=== PATIENT | male | born 1930 | race Caucasian/White ===

== ENCOUNTER 2020-04-04 12:13 | Emergency (ER) | payer MEDICARE, BC ==
--- NOTE | 2020-04-04 12:28 | EDM.PDOC ---
ED HPI GENERAL MEDICAL PROBLEM - General Chief Complaint: Lower Extremity Injury/Pain Stated Complaint: LEFT FOOT IN EXTREME PAIN Time Seen by Provider: 04/04/20 12:27 Source of Information: Reports: Patient, Old Records, RN, RN Notes Reviewed History Limitations: Reports: No Limitations - History of Present Illness INITIAL COMMENTS - FREE TEXT/NARRATIVE: States he was having left hip pain for a couple days, then some right knee pain for 2 to 3 days, and now presents to the ER due to left foot pain with redness for the past 2 days. Pain to left foot is worse when he steps on it, otherwise not much pain. Has swelling and redness to foot and ankle on left. States he has problems with gout to the left foot and is on Allopurinol. Took Ibuprofen yesterday for pain and felt it did help with pain. Onset: Gradual Duration: Day(s): (1-2) Location: Reports: Lower Extremity, Left Quality: Reports: Ache Severity: Severe Improves with: Reports: None Worsens with: Reports: Other (Wt bearing) Associated Symptoms: Reports: No Other Symptoms - Related Data Allergies Allergy/AdvReac Type Severity Reaction Status Date / Time No Known Allergies Allergy Verified 04/04/20 12:27 Home Meds: Home Meds Aspirin [Halfprin] 81 mg PO BRK 12/24/15 [History] Doxazosin Mesylate [Cardura] 1 mg PO BEDTIME 12/24/15 [History] Lisinopril [Prinivil] 5 mg PO DAILY 12/24/15 [History] Multivit-Min/FA/Lycopen/Lutein [Centrum Silver Tablet] 1 tab PO ACBREAKFAST [History] Triamcinolone Acetonide [Triamcinolone Acetonide 0.1% Crm] 1 applic TOP BID PRN 12/24/15 [History] atorvaSTATin [Lipitor] 40 mg PO DAILY 12/24/15 [History] glipiZIDE [Glucotrol] 2.5 mg PO BID 12/24/15 [History] allopurinoL [Zyloprim] 300 mg PO DAILY 04/04/20 [History] Past Medical History Cardiovascular History: Reports: None Musculoskeletal History: Reports: Osteoarthritis Other Musculoskeletal History: knee Neurological History: Reports: TIA Endocrine/Metabolic History: Reports: Diabetes, Type II Oncologic (Cancer) History: Reports: Prostate Other Oncologic History: history; PSA fluctuates the last 6 months - Infectious Disease History Infectious Disease History: Reports: Chicken Pox - Past Surgical History Cardiovascular Surgical History: Reports: None Endocrine Surgical History: Reports: None Oncologic Surgical History: Reports: None Dermatological Surgical History: Reports: None Social & Family History - Family History Family Medical History: Unobtainable - Living Situation & Occupation Occupation: Retired ([employer]) Review of Systems - Review of Systems Review Of Systems: Comprehensive ROS is negative, except as noted in HPI. ED EXAM, GENERAL - Physical Exam Exam: See Below Exam Limited By: No Limitations General Appearance: Alert, WD/WN, No Apparent Distress Throat/Mouth: Normal Inspection, Normal Lips, Normal Voice, No Airway Compromise Head: Atraumatic, Normocephalic Neck: Normal Inspection Respiratory/Chest: No Respiratory Distress, Lungs Clear, Normal Breath Sounds, No Accessory Muscle Use, Chest Non-Tender Cardiovascular: Normal Peripheral Pulses, Regular Rate, Rhythm GI/Abdominal: Normal Bowel Sounds, Soft, Non-Tender Back Exam: Normal Inspection Extremities: Normal Range of Motion, Redness (with tenderness, mild swelling, and increased warmth to left medial ankle and dorsal midfoot, skin is intact, joint is not painful (inconsistent with gout)). No: Joint Swelling, Barney's Sign Neurological: Alert, Oriented, No Motor/Sensory Deficits Course - Vital Signs Last Recorded V/S: Last Vital Signs Temp 98.3 F 04/04/20 12:17 Pulse 81 04/04/20 12:17 Resp 18 04/04/20 12:17 BP 120/81 04/04/20 12:17 Pulse Ox 97 04/04/20 12:17 - Orders/Labs/Meds Orders: Active Orders 24 hr Category Date Time Status CBC WITH AUTO DIFF [HEME] Stat Lab 04/04/20 12:34 Results MANUAL DIFFERENTIAL QA/NC [HEME] Stat Lab 04/04/20 12:34 Results Labs: Laboratory Tests 04/04/20 04/04/20 Range/Units 12:34 12:34 WBC 9.2 (5.0-10.0) 10^3/uL RBC 4.05 L (4.6-6.2) 10^6/uL Hgb 12.4 L (14.0-18.0) g/dL Hct 38.5 L (40.0-54.0) % MCV 95.1 (80-100) fL MCH 30.6 (27.0-34.0) pg MCHC 32.2 L (33.0-35.0) g/dL Plt Count 187 (150-450) 10^3/uL Neut % (Auto) 70.2 (42.2-75.2) % Lymph % (Auto) 15.0 L (20.5-50.1) % [place] % (Auto) 8.0 (2-8) % Eos % (Auto) 6.7 H (1.0-3.0) % Baso % (Auto) 0.1 (0.0-1.0) % Add Manual Diff Yes Sodium 140 (136-145) mmol/L Potassium 4.0 (3.5-5.1) mmol/L Chloride 105 (98-107) mmol/L Carbon Dioxide 26 (21-32) mmol/L Anion Gap 13.0 (7-13) mEq/L BUN 26 H (7-18) mg/dL Creatinine 1.38 H (0.70-1.30) mg/dL Est Cr Clr Drug Dosing 38.65 mL/min Estimated GFR (MDRD) 49 BUN/Creatinine Ratio 18.8 (No establ ref range) Glucose 181 H (74-99) mg/dL Uric Acid 3.9 (3.5-7.2) mg/dL Calcium 8.3 L (8.5-10.1) mg/dL Total Bilirubin 0.5 (0.2-1.0) mg/dL AST 15 (15-37) U/L ALT 26 (16-63) U/L Alkaline Phosphatase 48 (46-116) U/L C-Reactive Protein 6.4 H (0.0-0.9) mg/dL Total Protein 6.5 (6.4-8.2) g/dL Albumin 3.0 L (3.4-5.0) g/dL Globulin 3.5 Albumin/Globulin Ratio 0.86 Departure - Departure Time of Disposition: 13:30 Disposition: Home, Self-Care 01 Condition: Good Clinical Impression: Cellulitis of left foot - Discharge Information *PRESCRIPTION DRUG MONITORING PROGRAM REVIEWED*: No *COPY OF PRESCRIPTION DRUG MONITORING REPORT IN PATIENT KENA: No Instructions: Cellulitis, Adult Forms: ED Department Discharge Additional Instructions: Rx: Cephalexin 500mg Rx: Doxycycline 100mg Rx: Liberal (Hydrocodone) 5mg/325mg *Do not drive while taking this medication. Drink plenty of water and use a stool softener or eat prunes to prevent constipation from this medication. Follow up in clinic in 2 to 3 days for recheck of your foot. Sepsis Event Note - Focused Exam Vital Signs: Vital Signs Temp Pulse Resp BP Pulse Ox 04/04/20 12:17 98.3 F 81 18 120/81 97 Date Exam was Performed: 04/04/20 Time Exam was Performed: 13:37 - My Orders Last 24 Hours: My Active Orders 04/04/20 12:34 CBC WITH AUTO DIFF [HEME] Stat MANUAL DIFFERENTIAL QA/NC [HEME] Stat - Assessment/Plan Last 24 Hours: My Active Orders 04/04/20 12:34 CBC WITH AUTO DIFF [HEME] Stat MANUAL DIFFERENTIAL QA/NC [HEME] Stat
[2020-04-04 12:38] VITALS: BP 120/81; PULSE 81
== END 2020-04-04 13:40 | disposition home or self-care (01) ==
LOC: DL.ED 12:13
DX: L03.116 Cellulitis of left lower limb (principal); M19.90 Unspecified osteoarthritis, unspecified site; E11.9 Type 2 diabetes mellitus without complications; Z79.82 Long term (current) use of aspirin; Z79.899 Other long term (current) drug therapy; Z79.84 Long term (current) use of oral hypoglycemic drugs; Z86.73 Personal history of transient ischemic attack (TIA), and cerebral infarction without residual deficits
CPT/HCPCS: 36415; 80053; 84550; 85025; 86140; 99283

== ENCOUNTER 2020-04-10 11:16 | Emergency (ER) | payer MEDICARE, BC ==
[2020-04-10] MEDS ORDERED: Sodium Chloride 0.9% 10 ML Syringe FLUSH PRN (11:37)
--- NOTE | 2020-04-10 11:37 | EDM.PDOC ---
ED HPI GENERAL MEDICAL PROBLEM - General Chief Complaint: Gastrointestinal Problem Stated Complaint: DIARRHEA FOR 6 DAYS Time Seen by Provider: 04/10/20 11:37 Source of Information: Reports: Patient, Family, Old Records, RN, RN Notes Reviewed History Limitations: Reports: No Limitations - History of Present Illness INITIAL COMMENTS - FREE TEXT/NARRATIVE: Pt presents to ER from home by POV with c/o liquid diarrhea x6 days with progressively worsening generalized weakness, fatigue, loss of appetite, and nausea. Pt reports decreasing urine output with very little urine so far today. Was seen here on 04/04/20 for cellulitis of the left foot, treated with Cephalexin and Doxycycline. The foot is now better per pt. He had a stool specimen for culture/C-diff. in clinic and was expecting the results today. Pt denies chest pain, cough, shortness of breath, eye irritation/drainage, loss of taste or smell, red tongue, rash or skin lesions, abdominal pain, fevers, chills , recent travel, or known exposure to confirmed or suspected Covid-19 cases. Onset: Gradual Duration: Constant, Getting Worse Location: Reports: Abdomen, Generalized Severity: Severe Improves with: Reports: None Worsens with: Reports: None Associated Symptoms: Reports: No Other Symptoms - Related Data Allergies Allergy/AdvReac Type Severity Reaction Status Date / Time No Known Allergies Allergy Verified 04/04/20 12:27 Home Meds: Home Meds Aspirin [Halfprin] 81 mg PO BRK 12/24/15 [History] Doxazosin Mesylate [Cardura] 1 mg PO BEDTIME 12/24/15 [History] Lisinopril [Prinivil] 5 mg PO DAILY 12/24/15 [History] Multivit-Min/FA/Lycopen/Lutein [Centrum Silver Tablet] 1 tab PO ACBREAKFAST [History] Triamcinolone Acetonide [Triamcinolone Acetonide 0.1% Crm] 1 applic TOP BID PRN 12/24/15 [History] atorvaSTATin [Lipitor] 40 mg PO DAILY 12/24/15 [History] glipiZIDE [Glucotrol] 2.5 mg PO BID 12/24/15 [History] allopurinoL [Zyloprim] 300 mg PO DAILY 04/04/20 [History] Past Medical History Cardiovascular History: Reports: None Musculoskeletal History: Reports: Osteoarthritis Other Musculoskeletal History: knee Neurological History: Reports: TIA Endocrine/Metabolic History: Reports: Diabetes, Type II Oncologic (Cancer) History: Reports: Prostate Other Oncologic History: history; PSA fluctuates the last 6 months - Infectious Disease History Infectious Disease History: Reports: Chicken Pox - Past Surgical History Cardiovascular Surgical History: Reports: None Endocrine Surgical History: Reports: None Oncologic Surgical History: Reports: None Dermatological Surgical History: Reports: None Social & Family History - Family History Family Medical History: Unobtainable - Living Situation & Occupation Occupation: Retired ([employer]) ED ROS GENERAL - Review of Systems Review Of Systems: Comprehensive ROS is negative, except as noted in HPI. ED EXAM, GENERAL - Physical Exam Exam: See Below Exam Limited By: No Limitations General Appearance: Alert, WD/WN, No Apparent Distress Eye Exam: Bilateral Eye: Normal Inspection (No scleral icterus) Nose: Normal Inspection, Normal Mucosa, No Blood Throat/Mouth: Normal Lips, Normal Oropharynx, Normal Voice, No Airway Compromise , Other (Dry oral membranes) Head: Atraumatic, Normocephalic Neck: Normal Inspection, Full Range of Motion Respiratory/Chest: No Respiratory Distress, Lungs Clear, Normal Breath Sounds, No Accessory Muscle Use, Chest Non-Tender Cardiovascular: Regular Rate, Rhythm, No Edema GI/Abdominal: Normal Bowel Sounds, Soft, Non-Tender, No Organomegaly, No Distention, No Abnormal Bruit, No Mass (Male) Exam: Deferred Rectal (Males) Exam: Deferred Back Exam: Normal Inspection Extremities: Normal Inspection, Normal Range of Motion, Non-Tender, Normal Capillary Refill, No Pedal Edema Neurological: Alert, Oriented, CN II-XII Intact, Normal Cognition, No Motor/ Sensory Deficits, Other (Generalized weakness) Psychiatric: Normal Affect, Normal Mood Skin Exam: Warm, Dry, Intact, Normal Color, No Rash Course - Vital Signs Last Recorded V/S: Last Vital Signs Temp 97.2 F 04/10/20 11:30 Pulse 86 04/10/20 11:30 Resp 20 04/10/20 11:30 BP 74/45 L 04/10/20 11:30 Pulse Ox 91 L 04/10/20 11:30 Recheck BP 120/69 - Orders/Labs/Meds Orders: Active Orders 24 hr Category Date Time Status Bladder Scan [RC] ASDIRECTED Care 04/10/20 13:08 Ordered Peripheral IV Care [RC] . DIRECTED Care 04/10/20 11:38 Active CULTURE BLOOD [BC] Stat Lab 04/10/20 11:50 Received UA RFX SANDRO AND CULT IF INDIC [URIN] Stat Lab 04/10/20 11:38 Ordered Sodium Bicarbonate 100 MEQ in D5W 1000 ML @100 mL/Hr ( Med 04/10/20 13:09 Ordered 1000ml) Sodium Bicarbonate [Sodium Bicarbonate 8.4%] 100 meq Dextrose 5% in Water 1,000 ml IV ONETIME Sodium Chloride 0.9% [Saline Flush] Med 04/10/20 11:37 Active 10 ml FLUSH ASDIRECTED PRN Blood Culture x2 Reflex Set [OM.PC] Stat Oth 04/10/20 11:37 Ordered Peripheral IV Insertion Adult [OM.PC] Stat Oth 04/10/20 11:37 Ordered Medication Orders Sodium Bicarbonate 100 meq/ (Dextrose/Water) 1,100 mls @ 100 mls/hr IV ONETIME ONE Stop: 04/11/20 00:08 Last Admin: 04/10/20 13:45 Dose: 100 mls/hr Sodium Chloride (Saline Flush) 10 ml FLUSH ASDIRECTED PRN PRN Reason: Keep Vein Open Last Admin: 04/10/20 12:09 Dose: 10 ml Bladder scanner is broken. Labs: Laboratory Tests 04/10/20 04/10/20 04/10/20 Range/Units 11:42 11:42 11:42 WBC 7.3 (5.0-10.0) 10^3/uL RBC 3.95 L (4.6-6.2) 10^6/uL Hgb 12.1 L (14.0-18.0) g/dL Hct 37.1 L (40.0-54.0) % MCV 93.9 (80-100) fL MCH 30.6 (27.0-34.0) pg MCHC 32.6 L (33.0-35.0) g/dL Plt Count 221 (150-450) 10^3/uL Neut % (Auto) 65.8 (42.2-75.2) % Lymph % (Auto) 17.6 L (20.5-50.1) % Sac % (Auto) 14.9 H (2-8) % Eos % (Auto) 1.6 (1.0-3.0) % Baso % (Auto) 0.1 (0.0-1.0) % Add Manual Diff Yes Neutrophils % (Manual) 58 (42-75) % Band Neutrophils % 8 % Lymphocytes % (Manual) 18 L (20-50) % Monocytes % (Manual) 16 H (2-8) % Sodium 141 (136-145) mmol/L Potassium 4.4 (3.5-5.1) mmol/L Chloride 108 H (98-107) mmol/L Carbon Dioxide 13 L D (21-32) mmol/L Anion Gap 24.4 H (7-13) mEq/L BUN 78 H D (7-18) mg/dL Creatinine 7.43 H* D (0.70-1.30) mg/dL Est Cr Clr Drug Dosing 6.74 mL/min Estimated GFR (MDRD) 7 BUN/Creatinine Ratio 10.5 (No establ ref range) Glucose 56 L (74-99) mg/dL Lactic Acid 0.9 (0.4-2.0) mmol/L Calcium 8.0 L (8.5-10.1) mg/dL Total Bilirubin 0.3 (0.2-1.0) mg/dL AST 41 H (15-37) U/L ALT 73 H (16-63) U/L Alkaline Phosphatase 42 L (46-116) U/L B-Natriuretic Peptide 34 (0-100) pg/ml Total Protein 6.3 L (6.4-8.2) g/dL Albumin 2.7 L (3.4-5.0) g/dL Globulin 3.6 Albumin/Globulin Ratio 0.75 Amylase 69 (25-115) U/L Lipase 95 (73-393) U/L Meds: Medications Generic Name Dose Route Start Last Admin Trade Name Freq PRN Reason Stop Dose Admin Sodium Bicarbonate 100 meq/ 1,100 mls @ 100 mls/hr 04/10/20 13:09 04/10/20 13 :45 Dextrose/Water IV 04/11/20 00:08 100 mls/hr ONETIME ONE Administration Sodium Chloride 10 ml 04/10/20 11:37 04/10/20 12:09 Saline Flush FLUSH 10 ml ASDIRECTED PRN Administration Keep Vein Open Discontinued Medications Generic Name Dose Route Start Last Admin Trade Name Freq PRN Reason Stop Dose Admin Sodium Chloride 1,000 mls @ 999 mls/hr 04/10/20 11:51 04/10/20 12:09 Normal Saline IV 04/10/20 12:51 999 mls/hr .BOLUS ONE Administration Departure - Departure Time of Disposition: 13:15 Disposition: DC/Tfer to [facility] 02 Condition: Serious Clinical Impression: JARROD (acute kidney injury), Dehydration, Acute diarrhea - Discharge Information *PRESCRIPTION DRUG MONITORING PROGRAM REVIEWED*: Not Applicable *COPY OF PRESCRIPTION DRUG MONITORING REPORT IN PATIENT KENA: Not Applicable Forms: ED Department Discharge, Interfacility Transfer EMTALA Sepsis Event Note - Focused Exam Vital Signs: Vital Signs Temp Pulse Resp BP Pulse Ox 04/10/20 11:30 97.2 F 86 20 74/45 L 91 L Date Exam was Performed: 04/10/20 Time Exam was Performed: 14:02 - My Orders Last 24 Hours: My Active Orders 04/10/20 11:37 Sodium Chloride 0.9% [Saline Flush] 10 ml FLUSH ASDIRECTED PRN Blood Culture x2 Reflex Set [OM.PC] Stat Peripheral IV Insertion Adult [OM.PC] Stat 04/10/20 11:38 Peripheral IV Care [RC] . DIRECTED UA RFX SANDRO AND CULT IF INDIC [URIN] Stat 04/10/20 11:50 CULTURE BLOOD [BC] Stat 04/10/20 13:08 Bladder Scan [RC] ASDIRECTED 04/10/20 13:09 Sodium Bicarbonate 100 MEQ in D5W 1000 ML @100 mL/Hr (1000ml) Sodium Bicarbonate [Sodium Bicarbonate 8.4%] 100 meq Dextrose 5% in Water 1,000 ml IV ONETIME - Assessment/Plan Last 24 Hours: My Active Orders 04/10/20 11:37 Sodium Chloride 0.9% [Saline Flush] 10 ml FLUSH ASDIRECTED PRN Blood Culture x2 Reflex Set [OM.PC] Stat Peripheral IV Insertion Adult [OM.PC] Stat 04/10/20 11:38 Peripheral IV Care [RC] . DIRECTED UA RFX SANDRO AND CULT IF INDIC [URIN] Stat 04/10/20 11:50 CULTURE BLOOD [BC] Stat 04/10/20 13:08 Bladder Scan [RC] ASDIRECTED 04/10/20 13:09 Sodium Bicarbonate 100 MEQ in D5W 1000 ML @100 mL/Hr (1000ml) Sodium Bicarbonate [Sodium Bicarbonate 8.4%] 100 meq Dextrose 5% in Water 1,000 ml IV ONETIME
[2020-04-10 11:49] VITALS: BP 74/45; PULSE 86
[2020-04-10] MEDS ORDERED: Sodium Chloride 0.9% 1,000 ML IV ONE (11:51)
[2020-04-10 12:11] LABS: ANION GAP 24.4 mEq/L (7-13)
[2020-04-10] MEDS ORDERED: Sodium Bicarbonate 100 MEQ in Dextrose 5% in Water 1,000 ML IV ONE ×2 (13:09)
== END 2020-04-10 13:46 ==
LOC: DL.ED 11:16
DX: N17.9 Acute kidney failure, unspecified (principal); E86.0 Dehydration; R19.7 Diarrhea, unspecified; M19.90 Unspecified osteoarthritis, unspecified site; E11.9 Type 2 diabetes mellitus without complications; Z79.84 Long term (current) use of oral hypoglycemic drugs; Z79.899 Other long term (current) drug therapy; Z86.73 Personal history of transient ischemic attack (TIA), and cerebral infarction without residual deficits; Z79.82 Long term (current) use of aspirin
CPT/HCPCS: 36415; 51798; 80053; 82150; 83605; 83690; 83880; 85025; 87040; 96361; 96374; 99285; J7030; J7060; 99284

== ENCOUNTER 2020-04-16 10:18 | Inpatient (IN) | payer MEDICARE, BC ==
[2020-04-16] MEDS ORDERED: Ondansetron 4 MG Tab.DIS PO PRN (15:24)
[2020-04-16] MEDS ORDERED: Glucagon,Human Recombinant 1 MG Vial IM PRN (15:24)
[2020-04-16] MEDS ORDERED: 50% Dextrose in Water 50 ML Syringe IVPUSH PRN (15:24)
[2020-04-16] MEDS ORDERED: Ondansetron 4 MG/2 ML SDV IVPUSH PRN (15:24)
--- NOTE | 2020-04-16 16:02 | PCM.HP ---
H&P History of Present Illness - General Date of Service: 04/16/20 Admit Problem/Dx: Admission Diagnosis/Problem Admission Diagnosis/Problem Weakness Source of Information: Patient, Old Records - History of Present Illness Initial Comments - Free Text/Narative: Mr. Brandon Kaba is a/an 89 y.o. male with medical history significant for type 2 diabetes, CKD with baseline Cr of 1.3 to 1.5, hypertension, hyperlipidemia, TIA, obesity, prostate cancer, HFrEF 45-50%, and COPD who was admitted to [facility] for JARROD with Cr of 8.0. Patient had acidosis and required sodium bicarb infusion. Nephrology was consulted. Cr remained elevated. Temporary dialysis catheter was placed and patient received 2 sessions of dialysis. Urine output started improving. He was encephalopathic during hospitalization. He improved as kidney function improved. He was noted to be weak. PT and OT worked with patient and recommended Swing Bed placement. He became hypoxic and required supplemental O2. Patient is transferred to us for further therapies. Today, he reports right foot pain, no swelling or redness. Worse with ambulation. He reports that his last bowel movement was 3 days ago. States he had started using walker at home prior to admission. Denies home O2 use. Denies chest pain, shortness of breath, cough, fevers, chills, n/v/d, dysuria, hematuria, or any acute concerns. Right Foot Pain Score (Numeric/FACES): 0 - Related Data Allergies/Adverse Reactions: Allergies Allergy/AdvReac Type Severity Reaction Status Date / Time No Known Allergies Allergy Verified 04/16/20 14:20 Home Medications: Home Meds Aspirin [Halfprin] 81 mg PO DAILY 12/24/15 [History] Doxazosin Mesylate [Cardura] 1 mg PO BEDTIME 12/24/15 [History] Multivit-Min/FA/Lycopen/Lutein [Centrum Silver Tablet] 1 tab PO ACBREAKFAST [History] atorvaSTATin [Lipitor] 40 mg PO DAILY 12/24/15 [History] glipiZIDE [Glucotrol] 2.5 mg PO BID 12/24/15 [History] Bumetanide 1 mg PO DAILY 04/16/20 [History] Midodrine 10 mg PO TIDMEALS 04/16/20 [History] Past Medical History HEENT History: Reports: Impaired Vision Cardiovascular History: Reports: None, Hypertension Respiratory History: Reports: None, SOB Gastrointestinal History: Reports: None Genitourinary History: Reports: None, Dialysis, Urinary Incontinence Musculoskeletal History: Reports: Osteoarthritis Other Musculoskeletal History: knee Neurological History: Reports: TIA Psychiatric History: Reports: None Endocrine/Metabolic History: Reports: Diabetes, Type II Hematologic History: Reports: None Immunologic History: Reports: None Oncologic (Cancer) History: Reports: Prostate Other Oncologic History: history; PSA fluctuates the last 6 months Dermatologic History: Reports: Cellulitis Other Dermatologic History: LEFT FOOT CELLULITIS 3 WEEKS AGO - Infectious Disease History Infectious Disease History: Reports: Chicken Pox - Past Surgical History Head Surgeries/Procedures: Reports: None Cardiovascular Surgical History: Reports: None Male Surgical History: Reports: Prostatectomy, Other (See Below) Other Male Surgeries/Procedures: partial prostatectomy Endocrine Surgical History: Reports: None Oncologic Surgical History: Reports: None Dermatological Surgical History: Reports: None Social & Family History - Family History Family Medical History: Unobtainable - Tobacco Use Smoking Status *Q: Former Smoker Years of Tobacco use: 20 Packs/Tins Daily: 2 Used Tobacco, but Quit: Yes Month/Year Tobacco Last Used: 1994 - Caffeine Use Caffeine Use: Reports: Coffee, Soda Other Caffeine Use: 1-2 cups a day Caffeine Use Comment: diet coke - Alcohol Use Days Per Week of Alcohol Use: 6 Number of Drinks Per Day: 1 Total Drinks Per Week: 6 - Recreational Drug Use Recreational Drug Use: No - Living Situation & Occupation Occupation: Retired (fraser) H&P Review of Systems - Review of Systems: Review Of Systems: Comprehensive ROS is negative, except as noted in HPI. Exam - Exam Exam: See Below - Vital Signs Vital Signs: Last Vital Signs Temp 97.8 F 04/16/20 14:30 Pulse 67 04/16/20 14:30 Resp 18 04/16/20 14:30 BP 112/50 L 04/16/20 14:30 Pulse Ox 95 04/16/20 15:25 Weight: 203 lb 3.2 oz - Exam Quality Assessment: Supplemental Oxygen (2L via nasal canula) General: Alert, Oriented, Cooperative HEENT: Conjunctiva Clear, Hearing Intact, Mucosa Moist & [place] Neck: Supple, Trachea Midline Lungs: Crackles (Faint bibasilar crackles. ) Cardiovascular: Regular Rate, Regular Rhythm, Normal S1, Normal S2, Systolic Murmur GI/Abdominal Exam: Normal Bowel Sounds, Soft, Non-Tender, No Distention Extremities: Normal Inspection, Other (Right dorsal foot pain. ) Skin: Warm, Dry, Intact Neuro Extensive - Mental Status: Alert, Oriented x3, Normal Mood/Affect, Normal Cognition, Memory Intact Psychiatric: Alert, Normal Affect, Normal Mood - Problem List (1) Type II diabetes mellitus SNOMED Code(s): 64591277 ICD Code: E11.9 - TYPE 2 DIABETES MELLITUS WITHOUT COMPLICATIONS Status: Acute Current Visit: Yes (2) Hyperlipidemia SNOMED Code(s): 74557272 ICD Code: E78.5 - HYPERLIPIDEMIA, UNSPECIFIED Status: Acute Current Visit : Yes (3) Hypertension SNOMED Code(s): 78433412 ICD Code: I10 - ESSENTIAL (PRIMARY) HYPERTENSION Status: Acute Current Visit: Yes (4) Right foot pain SNOMED Code(s): 56961020 ICD Code: M79.671 - PAIN IN RIGHT FOOT Status: Acute Current Visit: Yes (5) Hypoxia SNOMED Code(s): 478656467 ICD Code: R09.02 - HYPOXEMIA Status: Acute Current Visit: Yes (6) Hypotension SNOMED Code(s): 40707542 ICD Code: I95.9 - HYPOTENSION, UNSPECIFIED Status: Acute Current Visit: Yes (7) JARROD (acute kidney injury) SNOMED Code(s): 07559616, 94793856 ICD Code: N17.9 - ACUTE KIDNEY FAILURE, UNSPECIFIED Status: Acute Current Visit: No Problem List Initiated/Reviewed/Updated: Yes Orders Last 24hrs: Active Orders 24 hr Category Date Time Status Patient Status [ADT] Routine ADT 04/16/20 15:25 Active Blood Glucose Check, Bedside [RC] QIDACANDBED Care 04/16/20 15:24 Active Diabetes Education [RC] Click to Edit Care 04/16/20 15:25 Active Intake and Output [RC] QSHIFT Care 04/16/20 15:28 Active Notify Provider [RC] PRN Care 04/16/20 15:25 Active Oxygen Therapy [RC] .PRN Care 04/16/20 15:25 Active Up With Assistance [RC] ASDIRECTED Care 04/16/20 15:24 Active VTE/DVT Education [RC] PER UNIT ROUTINE Care 04/16/20 15:25 Active Vital Signs [RC] ,20 Care 04/16/20 15:25 Active OT Evaluation and Treatment [CONS] Routine Cons 04/16/20 15:41 Active PT Evaluation and Treatment [CONS] Routine Cons 04/16/20 15:41 Active Consistent Carbohydrate Diet [DIET] Diet 04/16/20 Dinner Active BASIC METABOLIC PANEL,BMP [CHEM] Timed Lab 04/18/20 06:00 Ordered Acetaminophen [Tylenol] Med 04/16/20 15:24 Active 650 mg PO Q6H PRN Aspirin [Halfprin] Med 04/17/20 09:00 Ordered 81 mg PO DAILY Bumetanide [Bumex] Med 04/17/20 09:00 Ordered 1 mg PO DAILY Dextrose 50% in Water Med 04/16/20 15:24 Active 25 ml IVPUSH ASDIRECTED PRN Docusate Sodium/Sennosides [Senna Plus] Med 04/16/20 15:24 Active 1 tab PO BEDTIME PRN Doxazosin Mesylate [Cardura] Med 04/16/20 21:00 Ordered 1 mg PO BEDTIME Glucagon,Human Recombinant [GlucaGen] Med 04/16/20 15:24 Active 1 mg IM ONETIME PRN Heparin Sodium Med 04/16/20 22:00 Ordered 5,000 units SUBCUT Q8HR Insulin Lispro [HumaLOG] Med 04/16/20 18:00 Active See Protocol SUBCUT WITHMEALSANDBED Midodrine [Midodrine] Med 04/16/20 17:00 Ordered 10 mg PO TIDMEALS Multivit-Min/FA/Lycopen/Lutein [Centrum Silver Tablet] Med 04/17/20 06:00 Ordered 1 tab PO ACBREAKFAST Ondansetron [Zofran ODT] Med 04/16/20 15:24 Active 4 mg PO Q6H PRN Ondansetron [Zofran] Med 04/16/20 15:24 Active 4 mg IVPUSH Q6H PRN atorvaSTATin [Lipitor] Med 04/17/20 09:00 Ordered 40 mg PO DAILY Resuscitation Status Routine Resus Stat 04/16/20 15:24 Ordered Medication Orders Acetaminophen (Tylenol) 650 mg PO Q6H PRN PRN Reason: Pain (Mild 1-3)/fever Aspirin (Halfprin) 81 mg PO DAILY [facility] Bumetanide (Bumex) 1 mg PO DAILY [facility] Dextrose/Water (Dextrose 50% In Water) 25 ml IVPUSH ASDIRECTED PRN PRN Reason: Hypoglycemia Glucagon (Glucagen) 1 mg IM ONETIME PRN PRN Reason: Hypoglycemia Heparin Sodium (Porcine) (Heparin Sodium) 5,000 units SUBCUT Q8HR [facility] Insulin Human Lispro (Humalog) 0 unit SUBCUT WITHMEALSANDBED [facility]; Protocol Non-Formulary Medication (Atorvastatin [Lipitor]) 40 mg PO DAILY [facility] Non-Formulary Medication (Doxazosin Mesylate [Cardura]) 1 mg PO BEDTIME [facility] Non-Formulary Medication (Midodrine [Midodrine]) 10 mg PO TIDMEALS [facility] Non-Formulary Medication (Multivit-Min/Fa/Lycopen/Lutein [Centrum Silver Tablet] ) 1 tab PO ACBREAKFAST [facility] Ondansetron HCl (Zofran Odt) 4 mg PO Q6H PRN PRN Reason: nausea, able to take PO Ondansetron HCl (Zofran) 4 mg IVPUSH Q6H PRN PRN Reason: Nausea/Vomiting Senna/Docusate Sodium (Senna Plus) 1 tab PO BEDTIME PRN PRN Reason: Constipation Assessment/Plan Comment:: Acute kidney injury superimposed on CKD stage III: Patient with baseline creatinine of 1.3-1.5. Was admitted to [facility] with creatinine of 8.0. Underwent 2 sessions of dialysis. Urine output improved. Creatinine improved to 2.0. 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 CODE STATUS: DNR/DNI per patient preference
[2020-04-16] MEDS: Midodrine 2.5 MG Tab PO SCH (16:41)
[2020-04-16] MEDS: Insulin Lispro 100 Units/ML 3 ML Vial SUBCUT SCH ×2 (17:02→21:22)
--- NOTE | 2020-04-16 19:55 | CR ---
PROCEDURE INFORMATION: Exam: XR Right Foot Exam date and time: 04/16/2020 7:30 PM Age: 89 years old Clinical indication: Other: No injury; Additional info: Foot pain TECHNIQUE: Imaging protocol: XR Right foot. Views: 1 or 2 views. COMPARISON: No relevant prior studies available. FINDINGS: Bones/joints: The bones appear intact. There is no evidence of acute or healing fracture. There is no bone destruction or periosteal reaction. On the lateral projection, which was not performed with weight bearing, the cuboid bone appears anteriorly rotated and inferiorly subluxed. The joints are otherwise normally aligned and articulated. There are no periarticular erosions. There is a tiny plantar calcaneal spur. Soft tissues: The soft tissues are within normal limits. IMPRESSION: 1. No evidence of fracture or aggressive bone lesion. 2. Mild anterior rotation and inferior subluxation of the cuboid bone which may indicate cuboid syndrome.
[2020-04-16] MEDS: Doxazosin 2 MG Tab PO SCH (21:24)
[2020-04-16] MEDS: Heparin Sodium 5,000 Units/ML Vial SUBCUT SCH (21:29)
[2020-04-17] MEDS: Heparin Sodium 5,000 Units/ML Vial SUBCUT SCH ×3 (05:58→21:52)
[2020-04-17] MEDS: Insulin Lispro 100 Units/ML 3 ML Vial SUBCUT SCH ×4 (08:12→21:51)
[2020-04-17] MEDS: atorvaSTATin 20 MG Tab PO SCH (08:35)
[2020-04-17] MEDS: Multivitamins, Therapeutic with Minerals Tab PO SCH (08:35)
[2020-04-17] MEDS: Acetaminophen 325 MG Tab PO PRN (08:35)
[2020-04-17] MEDS: Aspirin 81 MG Tab.EC PO SCH (08:35)
[2020-04-17] MEDS: Midodrine 2.5 MG Tab PO SCH ×3 (08:36→17:30)
[2020-04-17] MEDS: Bumetanide 1 MG Tab PO SCH (08:37)
[2020-04-17] MEDS: Doxazosin 2 MG Tab PO SCH (21:43)
[2020-04-18] MEDS: Heparin Sodium 5,000 Units/ML Vial SUBCUT SCH ×3 (05:52→23:29)
[2020-04-18 06:58] LABS: ANION GAP 12.7 mEq/L (7-13)
[2020-04-18] MEDS: Insulin Lispro 100 Units/ML 3 ML Vial SUBCUT SCH ×4 (08:41→23:03)
[2020-04-18] MEDS: Midodrine 2.5 MG Tab PO SCH ×3 (08:45→17:50)
[2020-04-18] MEDS: atorvaSTATin 20 MG Tab PO SCH (08:46)
[2020-04-18] MEDS: Multivitamins, Therapeutic with Minerals Tab PO SCH (08:46)
[2020-04-18] MEDS: Aspirin 81 MG Tab.EC PO SCH (08:46)
[2020-04-18] MEDS: Bumetanide 1 MG Tab PO SCH (08:47)
[2020-04-18] MEDS: Acetaminophen 325 MG Tab PO PRN ×2 (08:47→23:26)
[2020-04-18] MEDS ORDERED: Lactulose Soln 10 GM/15 ML 30 ML UD Cup PO ONE (11:42)
[2020-04-18] MEDS: Doxazosin 2 MG Tab PO SCH (23:23)
[2020-04-19] MEDS: Heparin Sodium 5,000 Units/ML Vial SUBCUT SCH ×3 (05:34→21:34)
[2020-04-19] MEDS: Midodrine 2.5 MG Tab PO SCH ×3 (09:01→17:38)
[2020-04-19] MEDS: Insulin Lispro 100 Units/ML 3 ML Vial SUBCUT SCH ×4 (09:01→21:41)
[2020-04-19] MEDS: Bumetanide 1 MG Tab PO SCH (09:02)
[2020-04-19] MEDS: atorvaSTATin 20 MG Tab PO SCH (09:02)
[2020-04-19] MEDS: Aspirin 81 MG Tab.EC PO SCH (09:02)
[2020-04-19] MEDS: Multivitamins, Therapeutic with Minerals Tab PO SCH (09:02)
[2020-04-19] MEDS: Doxazosin 2 MG Tab PO SCH (21:32)
[2020-04-20] MEDS: Heparin Sodium 5,000 Units/ML Vial SUBCUT SCH ×3 (06:17→21:17)
[2020-04-20] MEDS: Midodrine 2.5 MG Tab PO SCH ×3 (08:28→17:23)
[2020-04-20] MEDS: Aspirin 81 MG Tab.EC PO SCH (08:29)
[2020-04-20] MEDS: Multivitamins, Therapeutic with Minerals Tab PO SCH (08:29)
[2020-04-20] MEDS: Bumetanide 1 MG Tab PO SCH (08:29)
[2020-04-20] MEDS: atorvaSTATin 20 MG Tab PO SCH (08:29)
[2020-04-20] MEDS: Insulin Lispro 100 Units/ML 3 ML Vial SUBCUT SCH ×4 (08:30→21:04)
--- NOTE | 2020-04-20 17:05 | PCM.CONSN ---
- General Info Date of Service: 04/20/20 Admission Dx/Problem (Free Text): Admission Diagnosis/Problem Admission Diagnosis/Problem Weakness Subjective Update: 89 y/o male who is admitted to swing bed for weakness, reports right foot pain. This has been going on for a few days now. He thinks it possibly could be gout as he has a history of gout and was recently taken off allopurinol. It is painful when he tries to put any pressure on the foot. He did get an xray last week, I tried taping the area and post op shoe but it is still bothering him. Denies any injury to the foot. Has really not been using the foot much since being in swing bed, only up to the bathroom which is painful any time he is walking. - Review of Systems General: Reports: No Symptoms - Patient Data Vitals - Most Recent: Last Vital Signs Temp 37.0 C 04/20/20 08:00 Pulse 65 04/20/20 08:00 Resp 18 04/20/20 08:00 BP 118/43 L 04/20/20 08:00 Pulse Ox 91 L 04/20/20 08:00 Weight - Most Recent: 91.036 kg I&O - Last 24 Hours: Intake & Output 04/20/20 04/20/20 04/20/20 06:59 14:59 22:59 Intake Total 400 Output Total 400 Balance 0 Lab Results Last 24 Hours: Laboratory Results - last 24 hr 04/19/20 04/19/20 04/20/20 Range/Units 16:45 20:50 07:24 POC Glucose 157 H 146 H 132 H (83-110) mg/dl 04/20/20 04/20/20 Range/Units 11:17 16:05 POC Glucose 178 H 156 H (83-110) mg/dl Med Orders - Current: Current Medications Acetaminophen (Tylenol) 650 mg PO Q6H PRN PRN Reason: Pain (Mild 1-3)/fever Last Admin: 04/18/20 23:26 Dose: 650 mg Aspirin (Halfprin) 81 mg PO DAILY ON LICENSE OF [facility] Last Admin: 04/20/20 08:29 Dose: 81 mg Atorvastatin Calcium (Lipitor) 40 mg PO DAILY ON LICENSE OF [facility] Last Admin: 04/20/20 08:29 Dose: 40 mg Bumetanide (Bumex) 1 mg PO DAILY ON [facility] OF [facility] Last Admin: 04/20/20 08:29 Dose: 1 mg Dextrose/Water (Dextrose 50% In Water) 25 ml IVPUSH ASDIRECTED PRN PRN Reason: Hypoglycemia Doxazosin Mesylate (Cardura) 0.5 mg PO BEDTIME ON LICENSE OF [facility] Last Admin: 04/19/20 21:32 Dose: 0.5 mg Glucagon (Glucagen) 1 mg IM ONETIME PRN PRN Reason: Hypoglycemia Heparin Sodium (Porcine) (Heparin Sodium) 5,000 units SUBCUT Q8HR ON LICENSE OF [facility] Last Admin: 04/20/20 13:01 Dose: 5,000 units Insulin Human Lispro (Humalog) 0 unit SUBCUT WITHMEALSANDBED ON LICENSE OF [facility]; Protocol Last Admin: 04/20/20 12:14 Dose: 1 unit Midodrine (Midodrine) 10 mg PO TIDMEALS ON LICENSE OF [facility] Last Admin: 04/20/20 12:19 Dose: 10 mg Multivitamins/Minerals (Vitamins And Minerals) 1 tab PO DAILY@0800 ON LICENSE OF [facility] Last Admin: 04/20/20 08:29 Dose: 1 tab Ondansetron HCl (Zofran Odt) 4 mg PO Q6H PRN PRN Reason: nausea, able to take PO Ondansetron HCl (Zofran) 4 mg IVPUSH Q6H PRN PRN Reason: Nausea/Vomiting Senna/Docusate Sodium (Senna Plus) 1 tab PO BEDTIME PRN PRN Reason: Constipation Last Admin: 04/17/20 08:35 Dose: 1 tab Discontinued Medications Lactulose (Cephulac) 20 gm PO ONETIME ONE Stop: 04/18/20 11:43 Last Admin: 04/18/20 12:46 Dose: 20 gm - Exam General: Alert, Oriented Physical Findings Comments:: Right foot with pain with palpation to lateral midfoot area along cuboid metatarsal joint which does have some edema present. No pain along peroneal tendon, none with torque of the metatarsals. Pain with stress adduction of the cuboid joint. None to the STJ or ankle joint. GOod palpable DP/PT pulses present , neuro intact to light touch. No erythema or SOI present. Sepsis Event Note - Evaluation Sepsis Screening Result: No Definite Risk - Focused Exam Vital Signs: Vital Signs Temp Pulse Resp BP Pulse Ox 04/20/20 08:00 37.0 C 65 18 118/43 L 91 L Date Exam was Performed: 04/20/20 Time Exam was Performed: 16:58 Consult PN Assessment/Plan Procedures: Procedures ASSAY OF AMYLASE (04/10/20) ASSAY OF BLOOD/URIC ACID (04/04/20) ASSAY OF LACTIC ACID (04/10/20) ASSAY OF LIPASE (04/10/20) ASSAY OF NATRIURETIC PEPTIDE (04/10/20) BLOOD CULTURE FOR BACTERIA (04/10/20) C-REACTIVE PROTEIN (04/04/20) CHEST WALL MANIPULATION (12/24/15) COMPLETE CBC W/AUTO DIFF WBC (04/10/20) COMPREHEN METABOLIC PANEL (04/10/20) CULTURE AEROBIC IDENTIFY (12/24/15) CULTURE OTHR SPECIMN AEROBIC (12/24/15) ELECTROCARDIOGRAM TRACING (12/24/15) EMERGENCY DEPT VISIT (04/10/20) EMERGENCY DEPT VISIT (04/10/20) EMERGENCY DEPT VISIT (04/04/20) GLUCOSE BLOOD TEST (12/24/15) HYDRATE IV INFUSION ADD-ON (04/10/20) METABOLIC PANEL TOTAL CA (12/24/15) OT EVALUATION (12/24/15) PT EVALUATION (12/24/15) ROUTINE VENIPUNCTURE (04/10/20) SMEAR GRAM STAIN (12/24/15) THER/PROPH/DIAG INJ IV PUSH (04/10/20) URINALYSIS AUTO W/SCOPE (12/24/15) US URINE CAPACITY MEASURE (04/10/20) Problem List Initiated/Reviewed/Updated: Yes Plan: Right foot possible gout vs cuboid syndrome, leaning more toward gout although xray was read as cuboid syndrome. Either way, an injection is an option for both conditions and I discussed that with him. I did try taping and cuboid padding with post op shoe which would usually help with the cubiod syndrome and he is still having pain. He would like injection today. I did prep the area, injected combo of 1% lidocaine plain and dexamethasone into the right cuboid met joint. He tolerated well. bandage was applied. I will check back with him in a couple days to see how the injection worked.
[2020-04-20] MEDS: Doxazosin 2 MG Tab PO SCH (21:05)
[2020-04-21] MEDS: Heparin Sodium 5,000 Units/ML Vial SUBCUT SCH ×3 (05:07→22:11)
[2020-04-21] MEDS: atorvaSTATin 20 MG Tab PO SCH (08:09)
[2020-04-21] MEDS: Multivitamins, Therapeutic with Minerals Tab PO SCH (08:10)
[2020-04-21] MEDS: Insulin Lispro 100 Units/ML 3 ML Vial SUBCUT SCH ×4 (08:10→20:33)
[2020-04-21] MEDS: Midodrine 2.5 MG Tab PO SCH ×3 (08:10→16:56)
[2020-04-21] MEDS: Bumetanide 1 MG Tab PO SCH (08:11)
[2020-04-21] MEDS: Aspirin 81 MG Tab.EC PO SCH (08:11)
--- NOTE | 2020-04-21 09:03 | PCM.PN ---
- General Info Date of Service: 04/21/20 Admission Dx/Problem (Free Text): Admission Diagnosis/Problem Admission Diagnosis/Problem Weakness. Subjective Update: No acute events overnight. Reports right foot pain is improved after getting steroid injection. Has been able to bear weight without pain. Reports occasional cough with greenish sputum. Denies shortness of breath, fevers, chills, chest pain, rhinorrhea, or sore throat. Saturating 92% on room air at rest and 88% on room air with activity. - Patient Data Vitals - Most Recent: Last Vital Signs Temp 99.2 F 04/21/20 08:00 Pulse 70 04/21/20 08:00 Resp 24 H 04/21/20 08:00 BP 111/60 04/21/20 08:00 Pulse Ox 90 L 04/21/20 08:00 Weight - Most Recent: 196 lb I&O - Last 24 Hours: Intake & Output 04/20/20 04/21/20 04/21/20 22:59 06:59 14:59 Intake Total 518 Output Total 100 100 Balance 418 -100 Lab Results Last 24 Hours: Laboratory Results - last 24 hr 04/20/20 04/20/20 04/20/20 Range/Units 11:17 16:05 20:17 POC Glucose 178 H 156 H 196 H (83-110) mg/dl 04/21/20 Range/Units 07:37 POC Glucose 194 H (83-110) mg/dl Med Orders - Current: Current Medications Acetaminophen (Tylenol) 650 mg PO Q6H PRN PRN Reason: Pain (Mild 1-3)/fever Last Admin: 04/18/20 23:26 Dose: 650 mg Aspirin (Halfprin) 81 mg PO DAILY [facility] Last Admin: 04/21/20 08:11 Dose: 81 mg Atorvastatin Calcium (Lipitor) 40 mg PO DAILY [facility] Last Admin: 04/21/20 08:09 Dose: 40 mg Bumetanide (Bumex) 1 mg PO DAILY [facility] Last Admin: 04/21/20 08:11 Dose: 1 mg Dextrose/Water (Dextrose 50% In Water) 25 ml IVPUSH ASDIRECTED PRN PRN Reason: Hypoglycemia Doxazosin Mesylate (Cardura) 0.5 mg PO BEDTIME [facility] Last Admin: 04/20/20 21:05 Dose: 0.5 mg Glucagon (Glucagen) 1 mg IM ONETIME PRN PRN Reason: Hypoglycemia Heparin Sodium (Porcine) (Heparin Sodium) 5,000 units SUBCUT Q8HR [facility] Last Admin: 04/21/20 05:07 Dose: 5,000 units Insulin Human Lispro (Humalog) 0 unit SUBCUT WITHMEALSANDBED [facility]; Protocol Last Admin: 04/21/20 08:10 Dose: 1 unit Midodrine (Midodrine) 10 mg PO TIDMEALS [facility] Last Admin: 04/21/20 08:10 Dose: 10 mg Multivitamins/Minerals (Vitamins And Minerals) 1 tab PO DAILY@0800 [facility] Last Admin: 04/20/20 08:29 Dose: 1 tab Ondansetron HCl (Zofran Odt) 4 mg PO Q6H PRN PRN Reason: nausea, able to take PO Ondansetron HCl (Zofran) 4 mg IVPUSH Q6H PRN PRN Reason: Nausea/Vomiting Senna/Docusate Sodium (Senna Plus) 1 tab PO BEDTIME PRN PRN Reason: Constipation Last Admin: 04/17/20 08:35 Dose: 1 tab Discontinued Medications Lactulose (Cephulac) 20 gm PO ONETIME ONE Stop: 04/18/20 11:43 Last Admin: 04/18/20 12:46 Dose: 20 gm - Exam General: Alert, Oriented, Cooperative, No Acute Distress HEENT: Pupils Equal, Pupils Reactive, Mucous Membr. Moist/[place] Neck: Supple, Trachea Midline Lungs: Clear to Auscultation, Normal Respiratory Effort Cardiovascular: Regular Rate, Regular Rhythm GI/Abdominal Exam: Normal Bowel Sounds, Soft, Non-Tender, No Distention Extremities: Pedal Edema (1+ around the ankles and feet. ) Skin: Warm, Dry, Intact Neurological: No New Focal Deficit Psy/Mental Status: Alert, Normal Affect, Normal Mood Sepsis Event Note - Evaluation Sepsis Screening Result: No Definite Risk - Focused Exam Vital Signs: Vital Signs Temp Pulse Resp BP BP Pulse Ox 04/21/20 08:00 99.2 F 70 24 H 111/60 90 L 04/20/20 21:05 140/57 L Date Exam was Performed: 04/21/20 Time Exam was Performed: 08:52 - Problem List & Annotations (1) Type II diabetes mellitus SNOMED Code(s): 86664010 Code(s): E11.9 - TYPE 2 DIABETES MELLITUS WITHOUT COMPLICATIONS Status: Acute Current Visit: Yes (2) Hyperlipidemia SNOMED Code(s): 16983345 Code(s): E78.5 - HYPERLIPIDEMIA, UNSPECIFIED Status: Acute Current Visit : Yes (3) Hypertension SNOMED Code(s): 19939846 Code(s): I10 - ESSENTIAL (PRIMARY) HYPERTENSION Status: Acute Current Visit: Yes (4) Right foot pain SNOMED Code(s): 56307258 Code(s): M79.671 - PAIN IN RIGHT FOOT Status: Acute Current Visit: Yes (5) Hypoxia SNOMED Code(s): 402161645 Code(s): R09.02 - HYPOXEMIA Status: Acute Current Visit: Yes (6) Hypotension SNOMED Code(s): 58097647 Code(s): I95.9 - HYPOTENSION, UNSPECIFIED Status: Acute Current Visit: Yes (7) JARROD (acute kidney injury) SNOMED Code(s): 72902576, 98585034 Code(s): N17.9 - ACUTE KIDNEY FAILURE, UNSPECIFIED Status: Acute Current Visit: No - Problem List Review Problem List Initiated/Reviewed/Updated: Yes - My Orders Last 24 Hours: My Active Orders 04/21/20 07:13 IS (RT) [RT Incentive Spirometry] [RC] ASDIRECTED 04/21/20 08:31 BASIC METABOLIC PANEL,BMP [CHEM] Routine - Plan Plan:: Acute kidney injury superimposed on CKD stage III: Patient with baseline creatinine of 1.3-1.5. Was admitted to [facility] with creatinine of 8.0. Underwent 2 sessions of dialysis. Urine output improved. Creatinine improved to 2.0. Continue Bumex Monitor renal function Avoid nephrotoxins Renal dosing of medications #Weakness: Due to deconditioning from hospitalization, PT and OT Fall precautions #Right foot pain: No swelling, erythema, or bruising X-ray of the right foot showing possible cuboid syndrome S/p foot injection with resolution of pain. Appreciate podiatry input PRN pain medication #Acute respiratory failure with hypoxia: Now off oxygen and saturating well on room air. 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 Afebrile, no shortness of breath. Monitor for now. If not improving, will culture and start antibiotics. DVT PPx: Heparin GI PPx: Diabetic diet. CODE STATUS: DNR/DNI per patient preference
[2020-04-21 09:48] LABS: ANION GAP 15.5 mEq/L (7-13)
[2020-04-21] MEDS: Doxazosin 2 MG Tab PO SCH (20:29)
[2020-04-22] MEDS: Heparin Sodium 5,000 Units/ML Vial SUBCUT SCH ×3 (08:17→21:58)
[2020-04-22] MEDS: Insulin Lispro 100 Units/ML 3 ML Vial SUBCUT SCH ×4 (08:31→21:56)
[2020-04-22] MEDS: Multivitamins, Therapeutic with Minerals Tab PO SCH (09:18)
[2020-04-22] MEDS: Midodrine 2.5 MG Tab PO SCH ×3 (09:18→16:57)
[2020-04-22] MEDS: Aspirin 81 MG Tab.EC PO SCH (09:18)
[2020-04-22] MEDS: atorvaSTATin 20 MG Tab PO SCH (09:18)
[2020-04-22] MEDS: Bumetanide 1 MG Tab PO SCH (09:19)
[2020-04-22] MEDS: Doxazosin 2 MG Tab PO SCH (21:57)
[2020-04-23] MEDS: Heparin Sodium 5,000 Units/ML Vial SUBCUT SCH ×3 (06:27→21:27)
[2020-04-23] MEDS: Insulin Lispro 100 Units/ML 3 ML Vial SUBCUT SCH ×4 (08:34→21:26)
[2020-04-23] MEDS: Midodrine 2.5 MG Tab PO SCH ×3 (08:52→16:56)
[2020-04-23] MEDS: Acetaminophen 325 MG Tab PO PRN ×2 (08:52→21:31)
[2020-04-23] MEDS: Bumetanide 1 MG Tab PO SCH (08:53)
[2020-04-23] MEDS: atorvaSTATin 20 MG Tab PO SCH (08:53)
[2020-04-23] MEDS: Aspirin 81 MG Tab.EC PO SCH (08:53)
[2020-04-23] MEDS: Multivitamins, Therapeutic with Minerals Tab PO SCH (08:53)
[2020-04-23] MEDS: Doxazosin 2 MG Tab PO SCH (21:27)
[2020-04-24] MEDS: Heparin Sodium 5,000 Units/ML Vial SUBCUT SCH (05:02)
[2020-04-24 08:27] VITALS: BP 117/52; PULSE 74
[2020-04-24] MEDS: Insulin Lispro 100 Units/ML 3 ML Vial SUBCUT SCH ×2 (08:29→12:17)
[2020-04-24] MEDS: Aspirin 81 MG Tab.EC PO SCH (08:51)
[2020-04-24] MEDS: atorvaSTATin 20 MG Tab PO SCH (08:51)
[2020-04-24] MEDS: Multivitamins, Therapeutic with Minerals Tab PO SCH (08:51)
[2020-04-24] MEDS: Bumetanide 1 MG Tab PO SCH (08:51)
[2020-04-24] MEDS: Midodrine 2.5 MG Tab PO SCH ×2 (08:52→12:17)
[2020-04-24] MEDS: Acetaminophen 325 MG Tab PO PRN (08:52)
--- NOTE | 2020-04-24 09:43 | PCM.DCSUM1 ---
Discharge Summary - Hospital Course Free Text/Narrative:: Acute kidney injury superimposed on CKD stage III: Patient with baseline creatinine of 1.3-1.5. Was admitted to [facility] with creatinine of 8.0. Underwent 2 sessions of dialysis. Urine output improved. Creatinine improved to 2.0. Continue Bumex as outpatient Avoid nephrotoxins Renal dosing of medications #Weakness: Due to deconditioning from hospitalization, PT and OT Fall precautions #Right foot pain: No swelling, erythema, or bruising X-ray of the right foot showing possible cuboid syndrome S/p foot injection with resolution of pain. To follow up with podiatry #Acute respiratory failure with hypoxia: Now off oxygen and saturating well on room air. 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 F/up with PMD in one week - Discharge Plan Home Medications: Home Meds Aspirin [Halfprin] 81 mg PO DAILY 12/24/15 [History] Doxazosin Mesylate [Cardura] 0.5 mg PO BEDTIME 12/24/15 [History] Multivit-Min/FA/Lycopen/Lutein [Centrum Silver Tablet] 1 tab PO ACBREAKFAST 12/24/15 [History] atorvaSTATin [Lipitor] 40 mg PO DAILY 12/24/15 [History] glipiZIDE [Glucotrol] 2.5 mg PO BID 12/24/15 [History] Bumetanide 1 mg PO DAILY 04/16/20 [History] Midodrine 10 mg PO TIDMEALS 04/16/20 [History] - Discharge Summary/Plan Comment DC Time >30 min.: No - Review of Systems General: Reports: No Symptoms Pulmonary: Reports: No Symptoms Cardiovascular: Reports: No Symptoms Musculoskeletal: Reports: Foot Pain Skin: Reports: No Symptoms - Patient Data Vitals - Most Recent: Last Vital Signs Temp 36.6 C 04/24/20 08:00 Pulse 74 04/24/20 08:00 Resp 18 04/23/20 20:00 BP 117/52 L 04/24/20 08:00 Pulse Ox 93 L 04/24/20 08:00 Weight - Most Recent: 89.074 kg I&O - Last 24 hours: Intake & Output 04/23/20 04/24/20 04/24/20 22:59 06:59 14:59 Intake Total 250 760 Balance 250 760 Lab Results - Last 24 hrs: Laboratory Results - last 24 hr 04/23/20 04/23/20 04/23/20 Range/Units 11:42 16:43 20:47 POC Glucose 164 H 179 H 189 H (83-110) mg/dl 04/24/20 Range/Units 08:03 POC Glucose 144 H (83-110) mg/dl Med Orders - Current: Current Medications Acetaminophen (Tylenol) 650 mg PO Q6H PRN PRN Reason: Pain (Mild 1-3)/fever Last Admin: 04/24/20 08:52 Dose: 650 mg Documented by: Aspirin (Halfprin) 81 mg PO DAILY [facility], [facility] Last Admin: 04/24/20 08:51 Dose: 81 mg Documented by: Atorvastatin Calcium (Lipitor) 40 mg PO DAILY [facility], [facility]1983 Last Admin: 04/24/20 08:51 Dose: 40 mg Documented by: Bumetanide (Bumex) 1 mg PO DAILY [facility], [facility] Last Admin: 04/24/20 08:51 Dose: 1 mg Documented by: Dextrose/Water (Dextrose 50% In Water) 25 ml IVPUSH ASDIRECTED PRN PRN Reason: Hypoglycemia Doxazosin Mesylate (Cardura) 0.5 mg PO BEDTIME [facility], [facility] Last Admin: 04/23/20 21:27 Dose: 0.5 mg Documented by: Glucagon (Glucagen) 1 mg IM ONETIME PRN PRN Reason: Hypoglycemia Heparin Sodium (Porcine) (Heparin Sodium) 5,000 units SUBCUT Q8HR [facility], [facility]1983 Last Admin: 04/24/20 05:02 Dose: Not Given Documented by: Insulin Human Lispro (Humalog) 0 unit SUBCUT WITHMEALSANDBED FOR[facility]LY [facility], [facility]–1983; Protocol Last Admin: 04/24/20 08:29 Dose: Not Given Documented by: Midodrine (Midodrine) 10 mg PO TIDMEALS [facility] Last Admin: 04/24/20 08:52 Dose: 10 mg Documented by: Multivitamins/Minerals (Vitamins And Minerals) 1 tab PO DAILY@0800 [facility] Last Admin: 04/24/20 08:51 Dose: 1 tab Documented by: Ondansetron HCl (Zofran Odt) 4 mg PO Q6H PRN PRN Reason: nausea, able to take PO Ondansetron HCl (Zofran) 4 mg IVPUSH Q6H PRN PRN Reason: Nausea/Vomiting Senna/Docusate Sodium (Senna Plus) 1 tab PO BEDTIME PRN PRN Reason: Constipation Last Admin: 04/17/20 08:35 Dose: 1 tab Documented by: Discontinued Medications Lactulose (Cephulac) 20 gm PO ONETIME ONE Stop: 04/18/20 11:43 Last Admin: 04/18/20 12:46 Dose: 20 gm Documented by: - Exam General: Reports: Alert, Oriented, Cooperative Lungs: Reports: Clear to Auscultation, Normal Respiratory Effort GI/Abdominal Exam: Normal Bowel Sounds, Soft, Non-Tender, No Organomegaly, No Distention, No Abnormal Bruit, No Mass, Pelvis Stable Extremities: Normal Inspection, Normal Range of Motion, Non-Tender, No Pedal Edema, Normal Capillary Refill Skin: Reports: Warm, Dry, Intact
== END 2020-04-24 12:35 | disposition home or self-care (01) | DRG 947 ==
LOC: DL.MS 14:23 → UNDOADMIN 14:23 → DL.MS 15:25
PROVIDERS: ADMIT Internal Medicine; ATTEND Internal Medicine
DX: R53.1 Weakness (principal); J96.01 Acute respiratory failure with hypoxia; I50.42 Chronic combined systolic (congestive) and diastolic (congestive) heart failure; I13.0 Hypertensive heart and chronic kidney disease with heart failure and stage 1 through stage 4 chronic kidney disease, or unspecified chronic kidney disease; N17.9 Acute kidney failure, unspecified; N18.3 Chronic kidney disease, stage 3 (moderate); M79.671 Pain in right foot; E11.22 Type 2 diabetes mellitus with diabetic chronic kidney disease; E78.5 Hyperlipidemia, unspecified; E66.9 Obesity, unspecified; J44.9 Chronic obstructive pulmonary disease, unspecified; H54.7 Unspecified visual loss; R32 Unspecified urinary incontinence; I95.9 Hypotension, unspecified; M19.90 Unspecified osteoarthritis, unspecified site; Z86.73 Personal history of transient ischemic attack (TIA), and cerebral infarction without residual deficits; Z85.46 Personal history of malignant neoplasm of prostate; Z87.891 Personal history of nicotine dependence; Z79.82 Long term (current) use of aspirin; Z79.84 Long term (current) use of oral hypoglycemic drugs; Z79.899 Other long term (current) drug therapy; Z68.27 Body mass index [BMI] 27.0-27.9, adult
CPT/HCPCS: 36415; 73620-RT; 80048; 82962; 94760; 97110-GO; 97110-GP; 97162-GP; 97165-GO; 97530-GO; A9270-GY; J1644; J1815-GY

== ENCOUNTER 2020-04-30 16:36 | Emergency (ER) | payer MEDICARE, BC ==
[~2020-04-30 16:36] MED LIST: Sodium Chloride 0.9% 10 ML Syringe FLUSH PRN
[2020-04-30] MEDS ORDERED: Sodium Polystyrene Sulfonate 15 GM/60 ML Susp 60 ML Bot PO ONE (16:37)
[2020-04-30 16:38] VITALS: BP 129/56; PULSE 83
--- NOTE | 2020-04-30 16:39 | EDM.PDOC ---
ED HPI GENERAL MEDICAL PROBLEM - General Stated Complaint: unknown Time Seen by Provider: 04/30/20 16:30 Source of Information: Reports: Patient History Limitations: Reports: No Limitations - History of Present Illness INITIAL COMMENTS - FREE TEXT/NARRATIVE: Patient comes emergency department today from home for evaluation of hyperkalemia. This patient was seen in the primary care clinic today for a f ollow-up visit after hospitalization. He was recently hospitalized in [place] following an episode of diarrhea and also acute kidney injury where he received 2 sessions of temporary dialysis runs in [place]. He had improved renal function and urinary output. Stool cultures were negative. He was recently on antibiotics just prior to the area which was Keflex and doxycycline. Resolved. He has no specific complaints when he went to the clinic today for his follow-up or when he presents to the emergency department. He has no diarrhea. He has had good urinary output. He has had good oral intake of fluids and foods. He has no chest pain no shortness of breath or difficulty breathing. No fever no chills. Has not been exposed anyone ill or concerns for COVID. No abdominal pain nausea or vomiting. No weakness dizziness lightheadedness. No syncope palpitations. - Related Data Allergies Allergy/AdvReac Type Severity Reaction Status Date / Time No Known Allergies Allergy Verified 04/16/20 14:20 Home Meds: Home Meds Aspirin [Halfprin] 81 mg PO DAILY 12/24/15 [History] Doxazosin Mesylate [Cardura] 0.5 mg PO BEDTIME 12/24/15 [History] Multivit-Min/FA/Lycopen/Lutein [Centrum Silver Tablet] 1 tab PO ACBREAKFAST 12/24/15 [History] atorvaSTATin [Lipitor] 40 mg PO DAILY 12/24/15 [History] glipiZIDE [Glucotrol] 2.5 mg PO BID 12/24/15 [History] Bumetanide 1 mg PO DAILY 60 Days #60 04/24/20 [Rx] Midodrine 2.5 mg PO BID #60 tablet 04/24/20 [Rx] Potassium Chloride [Klor-Con 10] 10 meq PO DAILY #60 tab.er 04/24/20 [Rx] Past Medical History HEENT History: Reports: Impaired Vision Cardiovascular History: Reports: None, Hypertension Respiratory History: Reports: None, SOB Gastrointestinal History: Reports: None Genitourinary History: Reports: None, Dialysis, Urinary Incontinence Musculoskeletal History: Reports: Osteoarthritis Other Musculoskeletal History: knee Neurological History: Reports: TIA Psychiatric History: Reports: None Endocrine/Metabolic History: Reports: Diabetes, Type II Hematologic History: Reports: None Immunologic History: Reports: None Oncologic (Cancer) History: Reports: Prostate Other Oncologic History: history; PSA fluctuates the last 6 months Dermatologic History: Reports: Cellulitis Other Dermatologic History: LEFT FOOT CELLULITIS 3 WEEKS AGO - Infectious Disease History Infectious Disease History: Reports: Chicken Pox - Past Surgical History Head Surgeries/Procedures: Reports: None Cardiovascular Surgical History: Reports: None Male Surgical History: Reports: Prostatectomy, Other (See Below) Other Male Surgeries/Procedures: partial prostatectomy Endocrine Surgical History: Reports: None Oncologic Surgical History: Reports: None Dermatological Surgical History: Reports: None Social & Family History - Family History Family Medical History: Unobtainable - Caffeine Use Caffeine Use: Reports: Coffee, Soda Other Caffeine Use: 1-2 cups a day Caffeine Use Comment: diet coke - Living Situation & Occupation Occupation: Retired ([employer]) ED ROS GENERAL - Review of Systems Review Of Systems: Comprehensive ROS is negative, except as noted in HPI. ED EXAM, GENERAL - Physical Exam Exam: See Below Exam Limited By: No Limitations General Appearance: Alert, WD/WN, No Apparent Distress Throat/Mouth: Normal Inspection Head: Atraumatic, Normocephalic Neck: Normal Inspection Respiratory/Chest: No Respiratory Distress, Lungs Clear, Normal Breath Sounds, No Accessory Muscle Use, Chest Non-Tender Cardiovascular: Normal Peripheral Pulses, Regular Rate, Rhythm GI/Abdominal: Normal Bowel Sounds, Soft, Non-Tender (Male) Exam: Deferred Rectal (Males) Exam: Deferred Back Exam: Normal Inspection Extremities: Normal Inspection, Normal Range of Motion, No Pedal Edema Neurological: Alert, Oriented, CN II-XII Intact, Normal Cognition, Normal Gait, No Motor/Sensory Deficits Psychiatric: Normal Affect, Normal Mood Skin Exam: Warm, Dry, Intact, Normal Color, No Rash EKG INTERPRETATION EKG Date: 04/30/20 Time: 16:46 Rhythm: NSR Enola: Normal P-Wave: Present QRS: Normal ST-T: Normal QT: Normal Comparison: No Change Course - Vital Signs Last Recorded V/S: Last Vital Signs Temp 97.9 F 04/30/20 16:36 Pulse 83 04/30/20 16:36 Resp 18 04/30/20 16:36 BP 129/56 L 04/30/20 16:36 Pulse Ox 99 04/30/20 16:36 - Orders/Labs/Meds Labs: Laboratory Tests 04/30/20 04/30/20 Range/Units 16:39 16:39 Sodium 140 (136-145) mmol/L Potassium 5.8 H (3.5-5.1) mmol/L Chloride 105 (98-107) mmol/L Carbon Dioxide 25 (21-32) mmol/L Anion Gap 15.8 H (7-13) mEq/L BUN 55 H (7-18) mg/dL Creatinine 2.05 H (0.70-1.30) mg/dL Est Cr Clr Drug Dosing 26.02 mL/min Estimated GFR (MDRD) 31 Glucose 114 H (74-99) mg/dL Calcium 8.8 (8.5-10.1) mg/dL Troponin I < 0.017 (0.000-0.056) ng/mL Meds: Medications Discontinued Medications Generic Name Dose Route Start Last Admin Trade Name Freq PRN Reason Stop Dose Admin Sodium Chloride 10 ml 04/30/20 16:35 Saline Flush FLUSH ASDIRECTED PRN Keep Vein Open Sodium Polystyrene Sulfonate Confirm 04/30/20 17:44 Kayexalate Administered 04/30/20 17:45 Dose 30 gm .ROUTE .STK-MED ONE Sodium Polystyrene Sulfonate 15 gm 04/30/20 16:37 Kayexalate PO 04/30/20 16:38 .STK-MED ONE - Re-Assessments/Exams Free Text/Narrative Re-Assessment/Exam: 04/30/20 the patients potassium is only 5.8 when rechecked here. He is asymptomatic EKG is okay. I will have him stop his daily potassium tab and we will give 2 doses of kayexalate one tonight and the morning and recheck his potassium tomorrow in the clinic. He is comfortable with this plan and his questions answered. Departure - Departure Time of Disposition: 17:35 Disposition: Home, Self-Care 01 Clinical Impression: Acute hyperkalemia CRF (chronic renal failure) Qualifiers: Chronic kidney disease stage: unspecified stage Qualified Code(s): N18.9 - Chronic kidney disease, unspecified - Discharge Information Referrals: Mike Briones, CUSTOMER ASSISTANCE REPRESENTATIVE [Primary Care Provider] - Forms: ED Department Discharge Additional Instructions: Stop the oral potassium pill daily. Go home take the Kayexalate when you get home and another dose in the morning prior to going to the clinic. Dispensed from the ED Stock. See Dr. Mccloud tomorrow for recheck of your potassium. Return to the ED if new or worsening symptoms. - Assessment/Plan Assessment:: Acute hyperkalemia CRF Plan: Stop the oral potassium pill daily. Go home take the Kayexalate when you get home and another dose in the morning prior to going to the clinic. See Dr. Mccloud tomorrow for recheck of your potassium. Return to the ED if new or worsening symptoms.
[2020-04-30 17:16] LABS: ANION GAP 15.8 mEq/L (7-13)
[2020-04-30] MEDS ORDERED: Sodium Polystyrene Sulfonate 15 GM/60 ML Susp 60 ML Bot ONE (17:44)
== END 2020-04-30 17:55 | disposition home or self-care (01) ==
LOC: DL.ED 16:36
DX: E87.6 Hypokalemia (principal); I12.9 Hypertensive chronic kidney disease with stage 1 through stage 4 chronic kidney disease, or unspecified chronic kidney disease; E11.22 Type 2 diabetes mellitus with diabetic chronic kidney disease; N18.9 Chronic kidney disease, unspecified; Z79.82 Long term (current) use of aspirin; Z79.899 Other long term (current) drug therapy; Z86.73 Personal history of transient ischemic attack (TIA), and cerebral infarction without residual deficits
CPT/HCPCS: 36415; 80048; 84484; 93005; 93010; 99283; 99285; A9270